=== PATIENT | male | born 1975 | race Caucasian/White ===

== ENCOUNTER 2020-07-05 14:24 | Emergency (ER) | payer OTHER, SELFPAY ==
[2020-07-05 14:26] VITALS: BP 153/101; PULSE 86; RESP 18; TEMP 36.7; O2SAT 100; BMI 32.1
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
[2020-07-05 15:31] VITALS: BP 150/90; PULSE 80; RESP 17; TEMP 36.6; O2SAT 99
== END 2020-07-05 15:33 | disposition home or self-care (01) ==
PROVIDERS: Emergency Provider Emergency Medicine; PCP Internal Medicine
DX: M25.522 Pain in left elbow (principal); I10 Essential (primary) hypertension; V53.0XXA Driver of pick-up truck or van injured in collision with car, pick-up truck or van in nontraffic accident, initial encounter
CPT/HCPCS: 73070; 99282